=== PATIENT | female | born 1980 | race African-American/Black ===

== ENCOUNTER 2022-01-02 14:54 | Emergency (ER) | payer BC ==
[2022-01-02] MEDS ORDERED: Sodium Chloride 0.9% 2.5 ML Syringe FLUSH PRN (19:36)
[2022-01-02] MEDS ORDERED: Sodium Chloride 0.9% 10 ML Syringe FLUSH PRN (19:36)
[2022-01-02] MEDS ORDERED: Sodium Chloride 0.9% 1,000 ML IV ONE (19:36)
[2022-01-02] MEDS ORDERED: Pantoprazole 80 MG in Sodium Chloride 0.9% 10 ML IVPUSH ONE (19:59)
[2022-01-02] MEDS ORDERED: Ondansetron 4 MG/2 ML SDV IVPUSH ONE (20:00)
[2022-01-02 20:53] LABS: CARBON DIOXIDE,CO2 24.7 mmol/L (21.0-32.0); POTASSIUM,K 3.9 mmol/L (3.5-5.1)
== END 2022-01-02 21:43 | disposition home or self-care (01) ==
LOC: MW.ED 14:54
DX: K29.71 Gastritis, unspecified, with bleeding (principal); Z79.899 Other long term (current) drug therapy
CPT/HCPCS: 36415; 74176; 80053; 81001; 83690; 84703; 85025; 96361; 96374; 96375; 99285; C9113; J2405; J3490; J7030; 99284

== ENCOUNTER 2022-02-17 11:37 | Day surgery (SDC) | payer BC ==
[~2022-02-17 11:37] MED LIST: Lactated Ringers 1,000 ML IV SCH
[2022-02-17] MEDS ORDERED: Propofol 200 MG/20 ML SDV ONE (13:28)
[2022-02-17] MEDS ORDERED: fentaNYL 100 MCG/2 ML SDV ONE (13:29)
[2022-02-17] MEDS ORDERED: Midazolam 1 MG/ML 2 ML SDV ONE (13:29)
== END 2022-02-17 15:13 | disposition home or self-care (01) ==
LOC: MW.SDS 11:37
PROVIDERS: ATTEND Surgery
DX: K29.50 Unspecified chronic gastritis without bleeding (principal); B96.81 Helicobacter pylori [H. pylori] as the cause of diseases classified elsewhere; D64.9 Anemia, unspecified; I10 Essential (primary) hypertension; K21.9 Gastro-esophageal reflux disease without esophagitis; J30.9 Allergic rhinitis, unspecified; M19.90 Unspecified osteoarthritis, unspecified site; E66.9 Obesity, unspecified; Z79.899 Other long term (current) drug therapy; Z98.890 Other specified postprocedural states
CPT/HCPCS: 43239; 45378; 81025; J2250; J2704; J3010; J7120